=== PATIENT | female | born 1995 | race Asian ===

== ENCOUNTER 2024-06-03 21:43 | Emergency (ER) | payer BC, SELFPAY ==
[2024-06-03 21:46] VITALS: BP 132/63
[2024-06-03 22:03] LABS: Urine Albumin Negative (Neg - Trace); Urine Bilirubin Negative (Negative); Urine Character Clear (Clear); Urine Color Yellow; Urine Glucose Negative (Negative); Urine Ketone Negative (Negative); Urine Leukocyte Negative (Negative); Urine Nitrite Negative (Negative); Urine Occult Blood Negative (Negative); Urine Urobilinogen Negative (Neg - 1+)
[2024-06-03 22:07] LABS: HCG, Urine Qualitative Screen Positive
--- NOTE | 2024-06-03 22:12 | ED.GENMED ---
History of Present Illness
General
Chief Complaint: Problems
Source: patient
Exam Limitations: none
Time Seen by Provider: 06/03/24 21:58
Nursing documentation reviewed up to this point in time: agreed with
History of Present Illness
History of Present Illness:
This is a 29-year-old female 2 para 1 currently 11 weeks with EDC of December 20. First day of last menstrual period March 15. She complains of 3-day history of intermittent right lower quadrant pain, initially mild, off and
on but moderate to severe pain last night which then resolved upon waking this morning. She was feeling well throughout the day but very mild intermittent right lower quadrant pain has returned tonight. No associated symptoms. She denies back
pain or flank pain, no nausea no vomiting, no diarrhea nor constipation. No dysuria nor urgency nor hematuria. She denies vaginal discharge nor bleeding. She has not had a fever.
She has had a visit with her PATIENT OBSERVATION ASSISTANT at [facility] 2 weeks ago. She has not had ultrasound as yet.
Her only daily medication is vitamins.
Past History
Past History
ED Past Medical History: Other (History of gallbladder issues/liver issues and ascites as a young child status post cholecystectomy at 5 years of age. No residual issues.)
ED Past Surgical History: Cholecystectomy (At age 5)
Social History
Tobacco: Non-smoker
Alcohol: None
Drug: None
Personal:
Living: with family
Employment: Employed (Nurse)
Family History
Family History: Other (Noncontributory)
Phy Exam
Physical Exam
Physical Exam:
GENERAL: 29-year-old female appears her stated age, bright and alert, pleasant, appears in no acute distress. is accompanying.
EYE: anicteric
NECK: Supple, nontender, no meningismus, no significant adenopathy.
ENT: oral mucosa is moist. No rhinorrhea.
CARDIAC: Regular rate and rhythm. no murmur.
LUNGS: Clear breath sounds bilaterally, no acute respiratory distress, no wheezes/rales/rhonchi
ABDOMEN: Soft, nondistended, minimal tenderness right lower quadrant/right suprapubic region with deep palpation only, no r/g, no cvat. normoactive BS.
NEUROLOGICAL: Alert and oriented x3, no focal neuro deficits. Gait is smith and steady.
SKIN: Warm and dry, normal color, skin intact. No rash.
MUSCULOSKELETAL: No C/C/E. peripheral pulses are full and equal b/l. No palpable tenderness.
PSYCH: Normal and appropriate interaction.
Course
Orders/Labs/Results
Orders:
Orders
06/03/24 21:52
Test Result ONCE
06/03/24 21:55
Urinalysis Reflex To Culture Urgent
Date Specimen was Collected: 06/03/24
Time Specimen was Collected: 21:52
Urine,Hcg qualitative screen [HCG, Urine Qualitative Screen] Urgent
Date Specimen was Collected: 06/03/24
Time Specimen was Collected: 21:52
06/03/24 22:07
US 1st Trimester Urgent
Comment:
Reason For Exam: RLQ pain x 3 days 11 wks preg EDC 12/20
06/03/24 22:08
0.9% Sodium Chloride 1000 ml [Nss] 1,000 ml IV BOLUS
06/03/24 22:19
Complete Blood Count/With Diff Urgent
06/03/24 22:20
CRP [C-Reactive Protein] Urgent
Comprehensive Metabolic Panel Urgent
Abnormal Lab Results
06/03/24 06/03/24
22:19 22:20
WBC 14.2 H 10^3/uL
(4.8-10.8)
Hgb 11.8 L g/dL
(12.0-16.0)
Hct 34.9 L %
(37.0-47.0)
MCV 73.3 L fL
(81.0-99.0)
MCH 24.8 L pg
(27.0-31.0)
RDW 16.6 H %
(11.5-14.5)
MPV 11.2 H fL
(7.4-10.4)
Abs Immat Gran (auto) 0.1 H 10^3/uL
(0-0.05)
Absolute Neuts (auto) 10.9 H 10^3/uL
(1.4-6.5)
Absolute Monos (auto) 1.2 H 10^3/uL
(0.1-0.6)
Neutrophils % 77.0 H %
(42.2-75.2)
Lymphocytes % 12.3 L %
(20.5-51.1)
Sodium 134 L mmol/L
(135-145)
Carbon Dioxide 20 L mmol/L
(22-30)
C-Reactive Protein 11.80 H mg/L
(0.0-10.00)
06/03/24 22:19
06/03/24 22:20
Vital Signs
Initial and Last Documented VS:
Initial Vital Signs
Temp Pulse Resp BP Pulse Ox
97.9 F 86 18 132/63 97
06/03/24 21:46 06/03/24 21:46 06/03/24 21:46 06/03/24 21:46 06/03/24 21:46
Last Documented Vital Signs
Temp Pulse Resp BP Pulse Ox
98.2 F 85 20 115/65 100
06/03/24 23:19 06/03/24 23:19 06/03/24 23:19 06/03/24 23:19 06/03/24 23:25
Information
Weeks gestation: Weeks: (11)
Location: Location: ([facility])
MDM/Problems Addressed
Differential Diagnosis Includes:
Concern for ovarian cyst, round ligament strain, ectopic , UTI, ureteric stone. Less likely appendicitis especially as pain has been intermittent over the past 3 days and was pain-free throughout the day today until tonight.
Patient has had no vaginal bleeding nor vaginal pressure. Miscarriage is unlikely.
Will check labs, urinalysis and plan for pelvic ultrasound.
Chronic conditions affecting care: Previous abdomnial surgery
*Radiology
Radiology exam reviewed: radiology read reviewed
*Pulse Oximetry
Patient hypoxic: no
*Critical Care Note
Total Time (30-74mins, 75-104mins- exclusive of procedures): Not Applicable
Update Note
Update Note:
23:50
Patient continues to appear well.
Very minimal right suprapubic/right pelvic pain with deep palpation only.
Labs show mildly elevated white blood cell count, very minimally elevated CRP at 11. Urinalysis is crystal clear.
Ultrasound shows single viable I[facility] at 11 weeks. Small subchorionic hemorrhage. Normal ovaries. No free fluid. Cervix is thick and closed.
I suspect round ligament pain. With reassuring exam, intermittent symptoms, appendicitis is much less likely.
Will discharge to home with recommendations for prompt follow-up with her PATIENT OBSERVATION ASSISTANT.
Strict return precautions discussed.
ED Attending Note
-
Portions of this chart may have been created with voice recognition software.� Occasional wrong word or��sound alike� substitutions may have occurred due to the inherent limitations of voice recognition software.
Discharge Plan
Departure
Patient Disposition: Home (Routine Discharge)
Date of Disposition: 06/03/24
Time of Disposition: 23:48
Patient with high blood pressure during this ER visit?: No
Condition: Good
Discharge Problem:
Abdominal pain, acute, right lower quadrant, 11 weeks gestation of
Instructions: symptoms, Round Ligament Pain, Stomach Pain in Early
Referrals:
Dari Gonzalez CRNP [Family Provider] - Call in 1-3 days for appt
Interventions
Interventions:
*Risk Screen - Suicide Last Done: 06/03/24 21:46
*General Assessment Last Done: 06/03/24 21:46
*Neglect/Abuse Screening Last Done: 06/03/24 21:46
*ED- Fall Risk Assessment Last Done: 06/03/24 21:46
*ED COVID-19 Vaccine History Last Done: 06/03/24 21:46
ED-Female Genitourinary Assessment Last Done: 06/03/24 23:23
Discharge Date and Time
Print Language: SAUDI ARABIAN
[2024-06-03] MEDS: NSS 1000 IV (22:20)
[2024-06-03 22:26] LABS: % Basophils 0.4 % (0-2); % Eosinophils 1.3 % (0-6); % Immature Granulocytes 0.4 % (0-0.5); % Lymphocytes 12.3 % (20.5-51.1); % Monocytes 8.6 % (1.7-9.3); Absolute Basophils 0.1 10^3/uL (0-0.2); Absolute Eosinophils 0.2 10^3/uL (0-0.7); Absolute Immature Granulocytes 0.1 10^3/uL (0-0.05); Absolute Lymphocytes 1.7 10^3/uL (1.2-3.4); Absolute Monocytes 1.2 10^3/uL (0.1-0.6); Absolute Neutrophils 10.9 10^3/uL (1.4-6.5); Hematocrit 34.9 % (37.0-47.0); Hemoglobin 11.8 g/dL (12.0-16.0); Mean Corp Hgb Conc. 33.8 g/dL (33.0-37.0); Mean Corpuscular Hgb 24.8 pg (27.0-31.0); Mean Corpuscular Volume 73.3 fL (81.0-99.0); Mean Platelet Volume 11.2 fL (7.4-10.4); Nucleated Red Blood Cells % 0 %; Platelet Count 287 10^3/uL (130-400); Red Blood Cell Count 4.76 10^6/uL (4.20-5.40); Red Cell Dist. Width 16.6 % (11.5-14.5); White Blood Cell Count 14.2 10^3/uL (4.8-10.8)
[2024-06-03 22:46] LABS: ALT (SGPT) 30 U/L (0-35); AST (SGOT) 24 U/L (14-36); Albumin 4.6 g/dl (3.5-5.0); Alkaline Phosphatase 61 U/L (38-126); Blood Urea Nitrogen 14 mg/dl (7-17); Calcium 9.6 mg/dl (8.4-10.2); Carbon Dioxide 20 mmol/L (22-30); Chloride 103 mmol/L (98-107); Glucose 86 mg/dl (70-99); Potassium 3.9 mmol/L (3.5-5.1); Sodium 134 mmol/L (135-145); Total Bilirubin 0.3 mg/dl (0.2-1.3); Total Protein 7.5 g/dl (6.3-8.2); eGFR > 60.00
[2024-06-03 23:19] VITALS: BP 115/65
[2024-06-03 23:26] VITALS: BMI 22.8
== END 2024-06-04 00:13 | disposition home or self-care (01) ==
LOC: EMR 21:43
PROVIDERS: Emergency Medicine; EMERGENCY PHYSICIAN Emergency Medicine; FAMILY PHYSICIAN Nurse Practitioner Adult Health; REFERRING PHYSICIAN Obstetrics & Gynecology
DX: O26.891 Other specified pregnancy related conditions, first trimester (principal); R10.31 Right lower quadrant pain; O20.8 Other hemorrhage in early pregnancy; Z3A.11 11 weeks gestation of pregnancy
CPT/HCPCS: 96360; 99284; 76801; 80053; 81003; 81025; 85025; 86140